=== PATIENT | female | born 1985 | race Caucasian/White ===

== ENCOUNTER 2021-04-10 18:08 | Inpatient (IN) | payer OTHER ==
[2021-04-10 19:39] LABS: HEMOGLOBIN 12.7 gm/dl (12.3-15.3); RED BLOOD COUNT 4.28 M/UL (4.00-5.10); WHITE BLOOD COUNT 11.2 K/UL (4.5-11.0)
[2021-04-11 06:41] LABS: HEMOGLOBIN 11.9 gm/dl (12.3-15.3)
== END 2021-04-11 11:00 | disposition home or self-care (01) | DRG 805 ==
LOC: GENOP 18:08 → OB 21:43
PROVIDERS: Obstetrics & Gynecology; ADMIT Obstetrics & Gynecology
PROC: 10E0XZZ Delivery of Products of Conception, External Approach (ICD-10-PCS; principal; 2021-04-10)
PROC: 4A1HXCZ Monitoring of Products of Conception, Cardiac Rate, External Approach (ICD-10-PCS; 2021-04-10)
PROC: 3E0P7VZ Introduction of Hormone into Female Reproductive, Via Natural or Artificial Opening (ICD-10-PCS; 2021-04-10)
DX: O36.4XX0 Maternal care for intrauterine death, not applicable or unspecified (principal); U07.1 COVID-19; Z37.1 Single stillbirth; O98.52 Other viral diseases complicating childbirth; O99.334 Smoking (tobacco) complicating childbirth; F17.210 Nicotine dependence, cigarettes, uncomplicated; Z3A.22 22 weeks gestation of pregnancy
CPT/HCPCS: 36415; 80307; 81001; 85014; 85018; 85025; 86900; 86901; J7120; U0002